=== PATIENT | female | born 1995 | race Caucasian/White ===

== ENCOUNTER 2017-10-31 21:26 | Observation (INO) ==
[2017-10-31 21:40] LABS: Bilirubin,Urine Negative (Negative); Blood,Urine Moderate (Negative); Clarity,Urine Turbid (Clear); Color,Urine Yellow (Yellow); Glucose,Urine (UA) Normal (Normal); Ketones,Urine Negative (Negative); Leukocyte Esterase,Urine Large (Negative); Nitrite,Urine Positive (Negative); Protein,Urine 100 mg/dL (Neg-Trace); Specific Gravity,Urine 1.014 (1.010-1.025); Urobilinogen,Urine Normal (Normal)
[2017-10-31 21:42] LABS: Bacteria,Urine Many per hpf (None-Few); Hyaline Casts,Urine None Seen per lpf (None-Few); Squamous Epithelial Cell,Urine Many per lpf (None-Few); WBC,Urine TNTC per hpf (0-3)
[2017-10-31] MEDS ORDERED: Ketorolac 30 MG/ML VIAL IVP ONE (21:51)
[2017-10-31] MEDS ORDERED: Ondansetron ODT 4 MG TAB.RAPDIS SL ONE (21:51)
[2017-10-31] MEDS ORDERED: 0.9 % Sodium Chloride 1,000 ML IVC ONE (21:51)
--- NOTE | 2017-10-31 21:53 | Emergency Department Note ---
Disposition Clinical Impression: Renal calculus, left, Hydronephrosis concurrent with and due to calculi of kidney and ureter UTI (urinary tract infection) Qualifiers: Urinary tract infection type: acute cystitis Hematuria presence: with hematuria Qualified Code(s): N30.01 - Acute cystitis with hematuria Disposition: Admitted As Inpatient Condition: Good Time of Disposition: 23:19 General Adult HPI - General Chief complaint: ED Abdominal Pain Stated complaint: abd pain Time Seen by Provider: 10/31/17 21:31 Source: patient, family Limitations: no limitations Nursing Notes Reviewed: Yes Vital Signs Reviewed: Yes - History of Present Illness HPI Narrative: Left flank pain began around 7 AM this morning after she woke up. No history of kidney stones. Did take ibuprofen that helped with this pain. States it radiates down into her left abdomen. Associated with nausea. Denies any dysuria, or hematuria. No provoking factors. Pain Scale: 9 - Related Data Allergies Allergy/AdvReac Type Severity Reaction Status Date / Time No Known Allergies Allergy Verified 10/31/17 21:29 All systems ED: reviewed and negative except as stated. Constitutional: Reports: chills. Denies: fever ENT ED: Denies: congestion Cardiovascular: Denies: chest pain, syncope Respiratory: Denies: cough, dyspnea Gastrointestinal: Reports: abdominal pain, nausea. Denies: vomiting, diarrhea, hematemesis Genitourinary: Reports: abnormal menses (This is chronic for her). Denies: urgency, dysuria, frequency, hematuria Musculoskeletal: Reports: back pain (Left-sided radiates around to her abdomen) Integumentary: Denies: rash, abrasion Neurological: Denies: headache, weakness Past Medical History - Past Medical History Attestation: Yes The following information was validated with the patient. Source: patient Medical history: Reports: no medical history Psychiatric history: Reports: anxiety, depression - Social History Smoking Status: Current every day smoker Alcohol use: Reports: none Drug use: Reports: none Physical Exam - General Limitations: no limitations General appearance: alert, in no apparent distress - Head Head exam: atraumatic, normocephalic, normal inspection - Eye Eye exam: Present: normal appearance, PERRL, EOMI - ENT ENT exam: normal exam, normal oropharynx, mucous membranes moist - Neck Neck exam: Present: normal inspection, full ROM, trachea midline. Absent: tenderness - Chest Chest inspection: Present: normal inspection, symmetric chest wall rise - Respiratory Respiratory exam: Present: normal lung sounds bilaterally. Absent: respiratory distress, accessory muscle use - Cardiovascular Cardiovascular exam: Present: regular rate, normal rhythm, normal heart sounds - Abdominal Exam Abdominal exam: Present: soft, Non-Tender. Absent: tenderness, distention, guarding, rebound - Extremities Exam Extremities exam: Present: normal inspection, full ROM. Absent: tenderness, pedal edema - Back Exam Back exam: Present: CVA tenderness (L) - Neurological Exam Neurological exam: Present: alert, oriented X3 - Psychiatric Psychiatric exam: Present: normal affect, normal mood - Skin Skin exam: Present: warm, dry, intact, normal color. Absent: rash, cyanosis Course Course Narrative: Female patient presents emergency department complaining of left flank pain that radiates down into her left groin area. She has no history of kidney stones. Does have a history of chronic UTIs however the last time she was treated for this was 2 years ago. She states that she woke up this morning well but around 7 AM started having this left-sided back pain. It is since migrated around to her left side. She does have left CVA tenderness on exam. She also has a UTI. Nonfebrile oils are stable while here. No shortness of breath or chest pain associated. Is nauseated. Well-appearing. We will get basic lab workup on patient brought her with pain medication and get a CT of her abdomen. She did take some ibuprofen earlier today that helped with the pain. Patient is not and does have a UTI on urinalysis - Reevaluation(s) Reevaluation #1: Patient reassessed. States she is feeling better at this time. She does have a UTI as well as hydronephrosis and paired Stones in her left ureter. She has bilateral renal colliculi as well. She is nonfebrile while here. We have started her on Rocephin and will admit to the hospital. We will place a urology consult. Time: 23:16 - Consultations Consultation #1: I spoke with Dr. Strong. He will see the patient in the hospital tomorrow. Time: 23:18 Consultation #2: Dr Crowley accepted Pt in stable condition. Time: 23:29 Vital Signs Temperature 98.5 F 10/31/17 21:27 Pulse Rate 99 10/31/17 21:27 Respiratory Rate 16 10/31/17 21:27 Blood Pressure 139/88 10/31/17 21:27 O2 Sat by Pulse Oximetry 98 10/31/17 21:27 Temperature 98.9 F 11/01/17 05:13 Pulse Rate 88 11/01/17 05:13 Respiratory Rate 15 11/01/17 05:13 Blood Pressure 110/66 11/01/17 05:13 O2 Sat by Pulse Oximetry 98 11/01/17 05:13 Oxygen Delivery Oxygen Delivery Room Air Medical Decision Making - Medical Records Medical records reviewed: Yes I reviewed the patient's medical records. - Lab Data Result diagrams: 10/31/17 21:58 10/31/17 21:58 Lab Results 10/31/17 10/31/17 10/31/17 Range/Units 21:30 21:30 21:58 WBC 12.6 H (4.3-11.1) K/mcL RBC 4.40 (3.82-4.97) M/mcL Hgb 13.2 (11.5-15.4) g/dL Hct 37.5 (35.3-44.9) % MCV 85.2 (83.0-100.0) fL MCH 30.0 (28.0-33.3) pg MCHC 35.2 (31.6-35.5) g/dL RDW 11.9 (11.5-14.5) % Plt Count 358 (140-400) K/mcL MPV 9.9 (9.4-12.4) fL Immature Gran % 0.3 (0-4) % Seg Neutrophils % 69.7 % Lymphocytes % 20.6 % Monocytes % 8.1 % Eosinophils % 0.8 % Basophils % 0.5 % Neutrophils # 8.8 (1.6-8.9) K/mcL Lymphocytes # 2.6 (0.6-4.6) K/mcL Monocytes # 1.0 (0.0-1.3) K/mcL Eosinophils # 0.1 (0.0-0.6) K/mcL Basophils # 0.1 (0.0-0.2) K/mcL Sodium (136-145) mEq/L Potassium (3.5-5.1) mEq/L Chloride (98-107) mEq/L Carbon Dioxide (23-29) mEq/L BUN (6-20) mg/dL Creatinine (0.60-1.20) mg/dL Est GFR ( Amer) (> 60) Est GFR (Non-Af Amer) (> 60) BUN/Creatinine Ratio (6-26) Glucose (70-105) mg/dL Calculated Osmolality (280-300) Calcium (8.6-10.3) mg/dL Total Bilirubin (0.3-1.0) mg/dL Direct Bilirubin (0.0-0.2) mg/dL Indirect Bilirubin (0.0-1.2) mg/dL AST (13-39) Units/L ALT (7-52) Units/L Alkaline Phosphatase (34-104) Units/L Serum Total Protein (6.4-8.9) g/dL Albumin (3.5-5.7) g/dL Globulin (2.4-3.5) g/dL Albumin/Globulin Ratio (1.1-2.2) Urine Color Yellow (Yellow) Urine Clarity Turbid A (Clear) Urine pH 6.0 (5.0-8.0) pH Units Ur Specific [place] 1.014 (1.010-1.025) Urine Protein 100 H (Neg-Trace) mg/dL Urine Glucose (UA) Normal (Normal) mg/dL Urine Ketones Negative (Negative) mg/dL Urine Blood Moderate H (Negative) Urine Nitrite Positive A (Negative) Urine Bilirubin Negative (Negative) Urine Urobilinogen Normal (Normal) mg/dL Ur Leukocyte Esterase Large H (Negative) Urine Microscopic RBC 5-15 H (0-3) per hpf Urine Microscopic WBC TNTC H (0-3) per hpf Ur Squamous Epith Cells Many H (None-Few) per lpf Urine Bacteria Many H (None-Few) per hpf Hyaline Casts None Seen (None-Few) per lpf Ur Culture Indicated? NO. A (NO) Urine Test Negative (Negative) 10/31/17 Range/Units 21:58 WBC (4.3-11.1) K/mcL RBC (3.82-4.97) M/mcL Hgb (11.5-15.4) g/dL Hct (35.3-44.9) % MCV (83.0-100.0) fL MCH (28.0-33.3) pg MCHC (31.6-35.5) g/dL RDW (11.5-14.5) % Plt Count (140-400) K/mcL MPV (9.4-12.4) fL Immature Gran % (0-4) % Seg Neutrophils % % Lymphocytes % % Monocytes % % Eosinophils % % Basophils % % Neutrophils # (1.6-8.9) K/mcL Lymphocytes # (0.6-4.6) K/mcL Monocytes # (0.0-1.3) K/mcL Eosinophils # (0.0-0.6) K/mcL Basophils # (0.0-0.2) K/mcL Sodium 137 (136-145) mEq/L Potassium 3.5 (3.5-5.1) mEq/L Chloride 105 (98-107) mEq/L Carbon Dioxide 23 (23-29) mEq/L BUN 12 (6-20) mg/dL Creatinine 0.75 (0.60-1.20) mg/dL Est GFR ( Amer) > 60 (> 60) Est GFR (Non-Af Amer) > 60 (> 60) BUN/Creatinine Ratio 16 (6-26) Glucose 95 (70-105) mg/dL Calculated Osmolality 284 (280-300) Calcium 9.5 (8.6-10.3) mg/dL Total Bilirubin 1.0 (0.3-1.0) mg/dL Direct Bilirubin 0.2 (0.0-0.2) mg/dL Indirect Bilirubin 0.8 (0.0-1.2) mg/dL AST 20 (13-39) Units/L ALT 15 (7-52) Units/L Alkaline Phosphatase 69 (34-104) Units/L Serum Total Protein 7.3 (6.4-8.9) g/dL Albumin 4.6 (3.5-5.7) g/dL Globulin 2.7 (2.4-3.5) g/dL Albumin/Globulin Ratio 1.7 (1.1-2.2) Urine Color (Yellow) Urine Clarity (Clear) Urine pH (5.0-8.0) pH Units Ur Specific [place] (1.010-1.025) Urine Protein (Neg-Trace) mg/dL Urine Glucose (UA) (Normal) mg/dL Urine Ketones (Negative) mg/dL Urine Blood (Negative) Urine Nitrite (Negative) Urine Bilirubin (Negative) Urine Urobilinogen (Normal) mg/dL Ur Leukocyte Esterase (Negative) Urine Microscopic RBC (0-3) per hpf Urine Microscopic WBC (0-3) per hpf Ur Squamous Epith Cells (None-Few) per lpf Urine Bacteria (None-Few) per hpf Hyaline Casts (None-Few) per lpf Ur Culture Indicated? (NO) Urine Test (Negative) - Radiology Data Radiology results reviewed: Yes I reviewed the patient's radiology results. Abdomen/Pelvis CT 10/31/17 21:51 IMPRESSION: Mild left-sided hydronephrosis secondary to a pair of stones within the proximal ureter. D/ / Vipin Lynne MD / Vipin Lynne MD Interpreting Provider: Vipin Lynne MD Attestation Statement - Attestation Attestation: I examined this patient and my medical decision-making was reviewed with the Resident Physician. I agree with the documented findings, disposition and treatment plan as described except to the extent set forth below. Findings consistent with infected kidney stone. Patient will be admitted for urology consult an IV antibiotics.
[2017-10-31 22:37] LABS: Basophils # 0.1 K/mcL (0.0-0.2); Basophils % 0.5 %; Eosinophils # 0.1 K/mcL (0.0-0.6); Eosinophils % 0.8 %; Hematocrit 37.5 % (35.3-44.9); Hemoglobin 13.2 g/dL (11.5-15.4); Immature Granulocytes % 0.3 % (0-4); Lymphocytes # 2.6 K/mcL (0.6-4.6); Lymphocytes % 20.6 %; Mean Corpuscular HGB Conc 35.2 g/dL (31.6-35.5); Mean Corpuscular Volume 85.2 fL (83.0-100.0); Mean Platelet Volume 9.9 fL (9.4-12.4); Monocytes % 8.1 %; Neutrophils # 8.8 K/mcL (1.6-8.9); Platelet Count 358 K/mcL (140-400); Red Cell Distribution Width 11.9 % (11.5-14.5); Segmented Neutrophils % 69.7 %
[2017-10-31] MEDS ORDERED: cefTRIAXone 2,000 MG in 0.9 % Sodium Chloride Mini Bag 100 ML IVPB ONE (22:41)
[2017-10-31 22:43] LABS: Alanine Aminotransferase 15 Units/L (7-52); Albumin 4.6 g/dL (3.5-5.7); Albumin/Globulin Ratio 1.7 (1.1-2.2); Alkaline Phosphatase 69 Units/L (34-104); Aspartate Amino Transferase 20 Units/L (13-39); BUN/Creatinine Ratio 16 (6-26); Bilirubin,Direct 0.2 mg/dL (0.0-0.2); Bilirubin,Indirect 0.8 mg/dL (0.0-1.2); Blood Urea Nitrogen 12 mg/dL (6-20); Calcium 9.5 mg/dL (8.6-10.3); Carbon Dioxide 23 mEq/L (23-29); Chloride 105 mEq/L (98-107); Globulin 2.7 g/dL (2.4-3.5); Glucose 95 mg/dL (70-105); Osmolality,Calculated 284 (280-300); Potassium 3.5 mEq/L (3.5-5.1); Sodium 137 mEq/L (136-145); Total Protein 7.3 g/dL (6.4-8.9); eGFR For African Americans > 60 (> 60); eGFR For Non-African Americans > 60 (> 60)
[2017-11-01] MEDS ORDERED: Ondansetron ODT 4 MG TAB.RAPDIS SL PRN ×2 (02:42→12:36)
[2017-11-01] MEDS ORDERED: Acetaminophen 325 MG TABLET PO PRN (02:42)
[2017-11-01] MEDS ORDERED: Naloxone 0.4 MG/ML INJ IVP PRN ×2 (02:42→12:36)
[2017-11-01] MEDS ORDERED: Ketorolac 15 MG/ML VIAL IVP PRN ×2 (02:42→12:36)
[2017-11-01] MEDS ORDERED: 0.9 % Sodium Chloride 1,000 ML IVC SCH (02:45)
--- NOTE | 2017-11-01 05:31 | Internal Med History&Physical ---
Date of Encounter: 11/01/17 Time of Encounter: 01:00 Internal Medicine - H&P: HPI Chief complaint: Left flank pain Admitted From: Home Plans for Post Hospital Care: Home History of present illness: Ms. Dallas is a 22 year old female present to ER for sudden onset left flank pain. Patient is in good health without significant past medical history. Patient started to have left-sided abdominal pain/flank pain since yesterday 7: 30 AM. Patient has chills and nausea but no vomiting. Patient denies a fever. Patient denies dysuria or burning or urgency on urination. In the emergency room, abdominal CT shows left side ureteral stone with mild hydronephrosis. Patient was admitted as UTI and ureteral stone. Urology consult was informed by ER doctor. Past Med Surg Social Fam HX - Past Medical History Medical history: no medical history Psychiatric history: anxiety, depression - Social History Smoking Status: Current every day smoker Alcohol use: none Drug use: none - Family History Mother History Unknown: Yes Internal Medicine - H&P: Meds 3 Allergy/AdvReac Type Severity Reaction Status Date / Time No Known Allergies Allergy Verified 10/31/17 21:29 All Systems PM: A 10-system review of systems was performed and is negative for pertinent findings except as documented above in the HPI. - Constitutional Vitals: Temp Pulse Resp BP Pulse Ox 98.9 F 88 15 110/66 98 11/01/17 05:13 11/01/17 05:13 11/01/17 05:13 11/01/17 05:13 11/01/17 05:13 General appearance: Present: A&O X 3, no acute distress, answers questions appropriately - Head Head exam: Present: atraumatic, normocephalic - Eye Eye exam: Present: PERRL, conjuntiva pink, sclera anicteric Pupils: Present: PERRL - Neck Neck exam general surgery: Present: supple, trachea midline. Absent: lymphadenopathy - Respiratory Respiratory exam: Present: CTAB. Absent: accessory muscle use, rales, rhonchi, wheezes - Cardiovascular Cardiovascular exam: Present: RRR, +S1, +S2. Absent: diastolic murmur, gallop, rubs, systolic murmur - GI/Abdominal GI/Abdominal exam: Present: normal bowel sounds, soft, no peritoneal signs. Absent: distended, tenderness - Extremities Exam Extremities exam: Present: warm, radial pulses palpable and symmetrical. Absent : calf tenderness, cyanotic, pedal edema - Neurological Exam Neurological exam: Present: CN II-XII intact, oriented X3, no focal deficits. Absent: pronater drift, facial droop, speech deficit - Skin Skin exam: Present: dry, intact Internal Med - H&P Results - Labs CBC & Chem 7: 10/31/17 21:58 10/31/17 21:58 - Assessment and plan (1) DVT prophylaxis Current Visit: Yes Status: Acute Assessment and plan: Patient is young and ambulating well, will hold anticoagulation at this point. (2) Hydronephrosis concurrent with and due to calculi of kidney and ureter Current Visit: Yes Status: Acute Assessment and plan: We will treat patient has UTI with antibiotics. Urology consult for ureteral stone (3) UTI (urinary tract infection) Current Visit: Yes Status: Acute Assessment and plan: As above Qualifiers: Urinary tract infection type: acute cystitis Hematuria presence: without hematuria Qualified Code(s): N30.00 - Acute cystitis without hematuria - Time Spent With Patient Total time spent is greater than 50% in coordination of care (as documented) at patient's floor/unit and/or counseling patient: 40 minutes Greater than 35 minutes
[2017-11-01 06:56] LABS: Basophils % 0.2 %; Eosinophils # 0.1 K/mcL (0.0-0.6); Eosinophils % 0.6 %; Hematocrit 36.7 % (35.3-44.9); Hemoglobin 12.5 g/dL (11.5-15.4); Immature Granulocytes % 0.2 % (0-4); Lymphocytes # 1.4 K/mcL (0.6-4.6); Lymphocytes % 13.6 %; Mean Corpuscular HGB Conc 34.1 g/dL (31.6-35.5); Mean Corpuscular Hemoglobin 29.3 pg (28.0-33.3); Mean Corpuscular Volume 85.9 fL (83.0-100.0); Mean Platelet Volume 9.7 fL (9.4-12.4); Monocytes % 9.9 %; Neutrophils # 7.8 K/mcL (1.6-8.9); Platelet Count 300 K/mcL (140-400); Red Blood Count 4.27 M/mcL (3.82-4.97); Segmented Neutrophils % 75.5 %
[2017-11-01 07:00] LABS: INR 1.2; Prothrombin Time 12.7 Seconds (9.4-12.1)
[2017-11-01 07:16] LABS: BUN/Creatinine Ratio 15 (6-26); Blood Urea Nitrogen 9 mg/dL (6-20); Calcium 8.5 mg/dL (8.6-10.3); Carbon Dioxide 21 mEq/L (23-29); Chloride 110 mEq/L (98-107); Glucose 95 mg/dL (70-105); Osmolality,Calculated 286 (280-300); Potassium 3.8 mEq/L (3.5-5.1); Sodium 139 mEq/L (136-145); eGFR For African Americans > 60 (> 60); eGFR For Non-African Americans > 60 (> 60)
--- NOTE | 2017-11-01 09:32 | Anesthesia Evaluation PreOp ---
Date of Encounter: 11/01/17 Time of Encounter: 09:30 - Past History Planned Operation: Left ureteral stent Cardiac History: Denies any Significant Hx Pulmonary History: Denies Any Significant HX QUALITY CONTROL CHEMIST History: Other (Anxiety/Depression) Other Medical History: Denies Any Significant HX Anesthesia History: No Prior Anesthetic Complications, Past Anesthesia (none) : No Test: Negative (10/31/2017) Alcohol Use: none Drug use: none Medications and Allergies No Known Home Drugs 11/01/17 [History] 3 Allergy/AdvReac Type Severity Reaction Status Date / Time No Known Allergies Allergy Verified 10/31/17 21:29 - Meds/Allergy Pre-op Review Medications Reviewed: Yes Allergies Reviewed: Yes Beta Blockers on Current Med List: No Anesthesia Results - Labs 11/01/17 06:42 11/01/17 06:42 Laboratory Tests 10/31/17 11/01/17 11/01/17 21:30 06:42 06:42 WBC 10.3 Hgb 12.5 Hct 36.7 Plt Count 300 INR 1.2 Sodium Potassium Chloride Carbon Dioxide BUN Creatinine Urine Test Negative 11/01/17 06:42 WBC Hgb Hct Plt Count INR Sodium 139 Potassium 3.8 Chloride 110 H Carbon Dioxide 21 L BUN 9 Creatinine 0.62 Urine Test Anesthesia Exam Vital Signs/O2 Sat, Most Current Temp Pulse Resp BP Pulse Ox 98.9 F 88 15 110/66 98 11/01/17 05:13 11/01/17 05:13 11/01/17 05:13 11/01/17 05:13 11/01/17 05:13 NPO (# of Hours): > 8 hrs Pain Scale: 0 Pain Scale Used: Numeric (1 - 10) - HEENT Pupil (Motor): Pupils equal, EOMI Mallampati: III Teeth: Normal (Recessed chin) Oral Opening: Greater than 3 - QUALITY CONTROL CHEMIST LOC: Oriented QUALITY CONTROL CHEMIST Motor: Normal RUE, Normal LUE, Normal RLE, Normal LLE, Normal Face QUALITY CONTROL CHEMIST Sensory: Normal: RUE, LUE, RLE, LLE, Face - Cardiac Rhythm: Regular Murmur: None - Pulmonary Breath Sounds: bilateral Clear Respiratory Effort: Symmetrical Anesthesia Assess/Plan ASA Score: 1, 2 Modified [place] Scale for Level of Consciousness: Cooperative, oriented, and tranquil Anesthetic Plan: General Autologous Blood: Yes Monitoring Plan: Standard Monitors Recovery Plan: PACU
--- NOTE | 2017-11-01 09:35 | Urology - Consult Note ---
Date of Encounter: 11/01/17 Time of Encounter: 09:33 - Assessment and Plan (1) Renal calculus, left Current Visit: Yes Status: Acute Assessment and plan: We will plan on cystoscopy and left ureteral stent placement today in the operative room. (2) UTI (urinary tract infection) Current Visit: Yes Status: Acute Assessment and plan: Continue with broad-spectrum antibiotics at this time. Patient will likely need to be discharged home with by mouth anabolic's tomorrow. Qualifiers: Urinary tract infection type: acute cystitis Hematuria presence: without hematuria Qualified Code(s): N30.00 - Acute cystitis without hematuria Urology CN:HPI Consult date: 11/01/17 Reason for consult Urology: Other (left upj stone and UTI) Requesting physician: Katheryn Grijalva History of present illness: Renetta is a 22-year-old female who presented to emergency Department yesterday secondary to severe left-sided flank pain. Her pain was a 10 and a 10 in nature. She was found to have a left 6 mm UPJ stone with some proximal hydronephrosis. Patient did also have some occasional nausea and vomiting. No fevers. She did have a urinalysis that was concerning for a UTI. She did have a slightly elevated WBC count. Past Med Surg Social Fam HX - Past Medical History Medical history: no medical history Psychiatric history: anxiety, depression - Social History Smoking Status: Current every day smoker Alcohol use: none Drug use: none - Family History Mother History Unknown: Yes Medications and Allergies No Known Home Drugs 11/01/17 [History] 3 Allergy/AdvReac Type Severity Reaction Status Date / Time No Known Allergies Allergy Verified 10/31/17 21:29 Review of Systems - Constitutional no chills, no fever(s) - EENT Nose, mouth and throat: no dizziness - Cardiovascular no chest pain - Respiratory no cough - Gastrointestinal nausea, vomiting, no abdominal pain - Musculoskeletal no back pain - Integumentary no erythema - Neurological no confusion Exam Initial Vital Signs Temp Pulse Resp BP Pulse Ox 98.5 F 99 16 139/88 98 10/31/17 21:27 10/31/17 21:27 10/31/17 21:27 10/31/17 21:27 10/31/17 21:27 General/Neuological: alert and oriented x 3 Eyes: normal pupils, non-icteric Neck: no lymphadenopathy noted, supple to touch ABD: soft, nontender, no masses palpated, good bowel sounds Back: no pain on percussion bilaterally Skin: no rashes noted Musculoskeletal: normal gait, FROMx4 - General physical appearance Present: well developed Urology Results - Labs 11/01/17 06:42 11/01/17 06:42 Abnormal lab results PT 12.7 Seconds (9.4-12.1) H 11/01/17 06:42 Chloride 110 mEq/L (98-107) H 11/01/17 06:42 Carbon Dioxide 21 mEq/L (23-29) L 11/01/17 06:42 Calcium 8.5 mg/dL (8.6-10.3) L 11/01/17 06:42 Urine Clarity Turbid (Clear) A 10/31/17 21:30 Urine Protein 100 mg/dL (Neg-Trace) H 10/31/17 21:30 Urine Blood Moderate (Negative) H 10/31/17 21:30 Urine Nitrite Positive (Negative) A 10/31/17 21:30 Ur Leukocyte Esterase Large (Negative) H 10/31/17 21:30 Urine Microscopic RBC 5-15 per hpf (0-3) H 10/31/17 21:30 Urine Microscopic WBC TNTC per hpf (0-3) H 10/31/17 21:30 Ur Squamous Epith Cells Many per lpf (None-Few) H 10/31/17 21:30 Urine Bacteria Many per hpf (None-Few) H 10/31/17 21:30 Ur Culture Indicated? NO. (NO) A 10/31/17 21:30 Diabetes panel 11/01/17 Range/Units 06:42 Sodium 139 (136-145) mEq/L Potassium 3.8 (3.5-5.1) mEq/L Chloride 110 H (98-107) mEq/L Carbon Dioxide 21 L (23-29) mEq/L BUN 9 (6-20) mg/dL Creatinine 0.62 (0.60-1.20) mg/dL Glucose 95 (70-105) mg/dL Calcium 8.5 L (8.6-10.3) mg/dL Calcium panel 11/01/17 Range/Units 06:42 Calcium 8.5 L (8.6-10.3) mg/dL Pituitary panel 11/01/17 Range/Units 06:42 Sodium 139 (136-145) mEq/L Potassium 3.8 (3.5-5.1) mEq/L Chloride 110 H (98-107) mEq/L Carbon Dioxide 21 L (23-29) mEq/L BUN 9 (6-20) mg/dL Creatinine 0.62 (0.60-1.20) mg/dL Glucose 95 (70-105) mg/dL Calcium 8.5 L (8.6-10.3) mg/dL Adrenal panel 11/01/17 Range/Units 06:42 Sodium 139 (136-145) mEq/L Potassium 3.8 (3.5-5.1) mEq/L Chloride 110 H (98-107) mEq/L Carbon Dioxide 21 L (23-29) mEq/L BUN 9 (6-20) mg/dL Creatinine 0.62 (0.60-1.20) mg/dL Glucose 95 (70-105) mg/dL Calcium 8.5 L (8.6-10.3) mg/dL All other labs normal. - Imaging CT scan - abdomen: image reviewed CT scan - pelvis: image reviewed Consult Discharge Plan - Plan Referrals: NONE,PCP [Primary Care Provider] -
[2017-11-01] MEDS ORDERED: *HR* Midazolam HCl 2 MG/2 ML VIAL ONE (10:47)
[2017-11-01] MEDS ORDERED: Lidocaine -MPF 2% 2 ML VIAL ONE (10:47)
[2017-11-01] MEDS ORDERED: *HR* Propofol 200 MG/20 ML VIAL IVP ONE (10:47)
[2017-11-01] MEDS ORDERED: *HR* FentaNYL (PF) 100 MCG/2 ML VIAL ONE (10:47)
[2017-11-01] MEDS ORDERED: Scopolamine Patch 1.5 MG PATCH.TD72 ONE (10:59)
[2017-11-01] MEDS ORDERED: Dexamethasone 4 MG/ML VIAL ONE (11:04)
[2017-11-01] MEDS ORDERED: Ondansetron 4 MG/2 ML VIAL ONE (11:04)
[2017-11-01] MEDS ORDERED: Ketorolac 30 MG/ML VIAL ONE (11:08)
[2017-11-01] MEDS ORDERED: *HR* HYDROmorphone (PF) 1 MG/ML SYRINGE IVP PRN (11:16)
[2017-11-01] MEDS ORDERED: *HR* OxyCODONE Immed Rel 5 MG TABLET PO PRN (11:16)
[2017-11-01] MEDS ORDERED: *HR* Promethazine 25 MG/ML VIAL IVP PRN (11:16)
--- NOTE | 2017-11-01 11:19 | Operative Note ---
Date of procedure: 11/01/17 Pre-op diagnosis: left upj stone Post-op diagnosis: same Procedure: Cystoscopy and left 4.8 x 24 cm ureteral stent placement Anesthesia: GETA Surgeon: Giancarlo Storng Was there an educational assistant present: No Estimated blood loss (cc): 0 Specimen: none Condition: stable Disposition: PACU Procedure in Detail: Patient was prepped and draped in normal sterile fashion. Timeout procedure performed. I then inserted the cystoscope into the patient's bladder. Left ureteral orifice was cannulated using a Glidewire. Immediate return of debris was seen. I then was able to place a 4.8 x 24 cm stent with good curl seen in the left kidney and in the bladder. Bladder was drained and procedure was ended. Patient will be scheduled for return to the operating room in 2-3 weeks for left ureteroscopic stone extraction
--- NOTE | 2017-11-01 12:04 | Anesthesia Evaluation Post Op ---
Date of Encounter: 11/01/17 Time of Encounter: 12:02 - Vital Signs Vital Signs: Vital Signs/O2 Sat, Most Current Temp Pulse Resp BP Pulse Ox 98.6 F 93 20 115/65 97 11/01/17 11:53 11/01/17 11:53 11/01/17 11:53 11/01/17 11:53 11/01/17 11:53 - Lungs Lungs: Clear Ascult./Percussion - Airway Airway: Non-obstructed - Cardiovascular Regular Rate - Mental Status Mental Status: Alert & Oriented, Answers Appropriately - Pain Pain Scale: 0 Pain Scale used: Numeric (1 - 10) - Nausea Vomiting Nausea Vomiting: Not Present - Hydration Hydration: Tolerates oral liquids - Discharge PostOp Status: Discharge Patient to home
[2017-11-01] MEDS: 0.9 % Sodium Chloride 1,000 ML IVC SCH (17:01)
[2017-11-01] MEDS ORDERED: cefTRIAXone 1,000 MG in Water for inj. (sterile) 20 ML 10 ML IVP SCH (18:00)
[2017-11-01] MEDS ORDERED: cefTRIAXone 1,000 MG in Water for inj. (sterile) 20 ML 10 ML IVPB SCH ×2 (18:00)
--- NOTE | 2017-11-01 18:00 | Event Note ---
Date of Encounter: 11/01/17 Time of Encounter: 11:00 Patient evaluated earlier this morning by nocturnalist and also by myself Patient with left flank pain found to have left hydronephrosis with stones. Urology consulted and patient status post cystoscopy with left ureteral stent placement Continue IV ceftriaxone overnight
[2017-11-01] MEDS: Ketorolac 15 MG/ML VIAL IVP PRN (22:18)
[2017-11-02] MEDS: Acetaminophen 325 MG TABLET PO PRN ×2 (03:04→15:14)
[2017-11-02] MEDS: Ketorolac 15 MG/ML VIAL IVP PRN ×2 (04:50→09:39)
[2017-11-02] MEDS: 0.9 % Sodium Chloride 1,000 ML IVC SCH (04:51)
--- NOTE | 2017-11-02 09:52 | Urology Progress Note ---
Date of Encounter: 11/02/17 Time of Encounter: 09:50 - Assessment and Plan (1) Renal calculus, left Current Visit: Yes Status: Acute Assessment and plan: sp left ureteral stent placement. patient will be scheduled for return to OR in 2-3 weeks. (2) UTI (urinary tract infection) Current Visit: Yes Status: Acute Assessment and plan: 2 weeks of bactrim. Qualifiers: Urinary tract infection type: acute cystitis Hematuria presence: without hematuria Qualified Code(s): N30.00 - Acute cystitis without hematuria Progress Note Narrative: patient seen. feeling great. no flank pain. still with occasional urgency. Objective Initial Vital Signs Temp Pulse Resp BP Pulse Ox 98.5 F 99 16 139/88 98 10/31/17 21:27 10/31/17 21:27 10/31/17 21:27 10/31/17 21:27 10/31/17 21:27 - General physical appearance Present: well developed, well nourished - Abdomen Present: soft. Absent: tender - Labs 11/01/17 06:42 11/01/17 06:42 - VTE Documentation of Mechanical Device: Intermittent pneumatic compression device Consult Discharge Plan - Plan Referrals: NONE,PCP [Primary Care Provider] -
[2017-11-02 10:12] VITALS: BP 111/73
--- NOTE | 2017-11-02 12:33 | Discharge Summary ---
- NOTES TO OUTPATIENT PROVIDER Notes to Outpatient Provider: Follow-up with urology Date of Encounter: 11/02/17 Time of Encounter: 11:00 - Discharge Diagnosis (1) UTI (urinary tract infection) Priority: Primary Status: Acute Qualifiers: Urinary tract infection type: acute cystitis Hematuria presence: without hematuria Qualified Code(s): N30.00 - Acute cystitis without hematuria (2) Hydronephrosis concurrent with and due to calculi of kidney and ureter Priority: Primary Status: Acute Hospital course: Patient is a 22-year-old female who presented to the ER on 11/01/17 due to left flank pain. Patient started to have left-sided abdominal pain/flank pain since yesterday 7: 30 AM. Patient has chills and nausea but no vomiting. Patient denies a fever. Patient denies dysuria or burning or urgency on urination. In the emergency room, abdominal CT shows left side ureteral stone with mild hydronephrosis. Patient was admitted for ureteral stone. Urology consult was informed by ER doctor. The patients hospital stay, Urology consulted and patient status post cystoscopy with left ureteral stent placement. She will be discharged to complete a two-week course of Bactrim. - Time Spent with Patient Total time spent providing and/or coordinating discharge services: Less than 30 minutes - Discharge Medications Prescriptions: Sulfamethoxazole/Trimeth DS [Bactrim DS] 1 each PO BID 14 Days #28 tablet Home Medications: Sulfamethoxazole/Trimeth DS [Bactrim DS] 1 each PO BID 14 Days #28 tablet [Rx] Allergies/Adverse Reactions: 3 Allergy/AdvReac Type Severity Reaction Status Date / Time No Known Allergies Allergy Verified 10/31/17 21:29 Date of admission: 11/01/17 00:29 Primary care physician: PCP NONE - Constitutional Vitals: Temp Pulse Resp BP Pulse Ox 98.2 F 70 15 111/73 98 11/02/17 10:11 11/02/17 10:11 11/02/17 10:11 11/02/17 10:11 11/02/17 10:11 General appearance: Present: A&O X 3, no acute distress, answers questions appropriately - Respiratory Respiratory exam: Present: CTAB. Absent: accessory muscle use, rales, rhonchi, wheezes - Cardiovascular Cardiovascular exam: Present: RRR, +S1, +S2. Absent: diastolic murmur, gallop, rubs, systolic murmur - Patient Status Disposition: Home, Self-Care Condition: Good - Discharge Instructions Follow Up With: Giancarlo Strong MD [Partnered Physician] - (Called the office and they will call the patient for the return to OR date and time. Thank you) Forms: Inpatient Work/School Release - VTE Documentation of Mechanical Device: Intermittent pneumatic compression device
== END 2017-11-02 15:39 | disposition home or self-care (01) ==
LOC: EMEROO 21:26 → 3ANU 21:26 → SUATTDRO 11-01 00:29 → 3ANU 11-01 00:42
PROVIDERS: ADMIT Internal Medicine; ATTEND Hospitalist